=== PATIENT | female | born 1970 | race Caucasian/White ===

== ENCOUNTER 2017-11-26 09:11 | Emergency (ER) | payer BC ==
--- NOTE | 2017-11-26 09:33 | UC ---
Throat Pain/Nasal Zane HPI - HPI Summary HPI Summary: Patient has had increased sinus pressure, change in position is making her lightheaded. feels like the right eye is so swollen and puffy. - History of Current Complaint Stated Complaint: SINUSES Time Seen by Provider: 11/26/17 09:24 Hx Obtained From: Patient Hx Last Menstrual Period: n/a ?: No Onset/Duration: Sudden Onset, Lasting Days - 6 Severity: Moderate Associated Signs & Symptoms: Positive: Sinus Discomfort, Nasal Discharge, Fever - Allergies/Home Medications Allergies/Adverse Reactions: Allergies Allergy/AdvReac Type Severity Reaction Status Date / Time MS NSAIDs [NSAIDs] Allergy Hives Verified 04/09/16 09:12 MS Sulfamethoxazole Allergy Hives Verified 11/19/13 18:17 w/Trimethoprim [From Bactrim] PMH/Surg Hx/FS Hx/Imm Hx Previously Healthy: Yes - Surgical History Surgical History: Yes Surgery Procedure, Year, and Place: Hysterectomy, 2012, [facility] - Family History Known Family History: Positive: None - declined any significant family history Negative: Cardiac Disease, Hypertension - Social History Alcohol Use: Occasionally Substance Use Type: None Smoking Status (MU): Never Smoked Tobacco Have You Smoked in the Last Year: No Review of Systems Constitutional: Fever, Chills, Fatigue Skin: Negative Eyes: Negative ENT: Sore Throat, Ear Ache, Nasal Discharge, Sinus Congestion, Sinus Pain/ Tenderness Respiratory: Cough Cardiovascular: Negative Gastrointestinal: Negative Genitourinary: Negative Motor: Negative Neurovascular: Negative Musculoskeletal: Negative Neurological: Headache Is Patient Immunocompromised?: No All Other Systems Reviewed And Are Negative: Yes Physical Exam Triage Information Reviewed: Yes Appearance: Well-Nourished, Ill-Appearing, Pain Distress Vital Signs Reviewed: Yes Eye Exam: Normal ENT: Positive: Pharyngeal erythema, Nasal congestion, Nasal drainage, TM bulging , TM red, Sinus tenderness Dental Exam: Normal Neck exam: Normal Neck: Positive: Supple, Nontender, No Lymphadenopathy Respiratory Exam: Normal Respiratory: Positive: Chest non-tender, Lungs clear, Normal breath sounds Cardiovascular Exam: Normal Cardiovascular: Positive: RRR, No Murmur, Pulses Normal Abdominal Exam: Normal Abdomen Description: Positive: Nontender, No Organomegaly, Soft Bowel Sounds: Positive: Present Musculoskeletal Exam: Normal Musculoskeletal: Positive: Strength Intact, ROM Intact, No Edema Neurological Exam: Normal Neurological: Positive: Alert, Muscle Tone Normal Psychological Exam: Normal Skin Exam: Normal Throat Pain/Nasal Course/Dx - Course Course Of Treatment: hx obtained, exam performed ,meds reviewed, treated for sinusitis - Differential Dx/Diagnosis Differential Diagnosis/HQI/PQRI: Influenza, Laryngitis, Otitis Media, Pharyngitis, Sinusitis Provider Diagnoses: sinusitis Discharge - Discharge Plan Condition: Stable Disposition: HOME Prescriptions: Azithromyxin GREG (NF) [Z-Greg (Zithromax) 250 mg tabs #6] 2 tab PO .TODAY, THEN 1 DAILY #6 tab predniSONE TAB* [Deltasone TAB*] 40 mg PO DAILY #14 tab Patient Education Materials: Sinusitis (ED) Referrals: Wendi Astorga MD [Primary Care Provider] - Additional Instructions: 1. take the medication as prescribed 2. Increase fluid intake 3. Neti pot is also helpful to rinse the sinuses. 4. Get plenty of rest. 5. FOllow up as needed.
[2017-11-26 09:43] VITALS: BP 127/76
== END 2017-11-26 09:46 | disposition home or self-care (01) ==
LOC: UCCORT 09:11
DX: J32.9 Chronic sinusitis, unspecified (principal); Z88.1 Allergy status to other antibiotic agents; Z88.8 Allergy status to other drugs, medicaments and biological substances
CPT/HCPCS: 99212; G0463

== ENCOUNTER 2019-09-07 09:35 | Emergency (ER) | payer BC ==
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
[2019-09-07 10:06] VITALS: BP 121/77
--- NOTE | 2019-09-07 10:33 | UC ---
Throat Pain/Nasal Zane HPI - HPI Summary HPI Summary: Per developer relations manager: "Sinus congestion, ear pain, headache for last 5 days. " -denies fever, has used "everything" (without offering specifics) and nothing has been effective for more than dose range time. she does get temporary relief from tylenol cold/sinus type products and has to re-dose when they huizar off. no cough. all in her head. has pressure over cheeks and forhead. has not tried saline lavage or nasal sprays. + ear pressure. -works in a school -denies asthma - History of Current Complaint Chief Complaint: UCRespiratory Stated Complaint: SINUS COMPLAINT, B/L EAR COMPLAINT Time Seen by Provider: 09/07/19 10:06 Hx Last Menstrual Period: n/a Pain Intensity: 4 - Allergies/Home Medications Allergies/Adverse Reactions: Allergies Allergy/AdvReac Type Severity Reaction Status Date / Time NSAIDS (Non-Steroidal Allergy Hives Verified 07/18/18 13:40 Anti-Inflamma bactrim Allergy Hives Uncoded 07/18/18 13:40 PMH/Surg Hx/FS Hx/Imm Hx Previously Healthy: Yes - Surgical History Surgical History: Yes Surgery Procedure, Year, and Place: Hysterectomy, 2012, [facility] - Family History Known Family History: Positive: None - declined any significant family history Negative: Cardiac Disease, Hypertension, Respiratory Disease - no asthma - Social History Alcohol Use: Weekly Alcohol Amount: 3 Substance Use Type: None Smoking Status (MU): Never Smoked Tobacco Have You Smoked in the Last Year: No Review of Systems All Other Systems Reviewed And Are Negative: Yes Constitutional: Positive: Fatigue. Negative: Fever, Chills Skin: Negative: Negative, Rash Eyes: Positive: Negative. Negative: Drainage, Eye Redness ENT: Positive: Ear Ache, Nasal Discharge, Sinus Congestion, Sinus Pain/ Tenderness. Negative: Sore Throat Respiratory: Negative: Shortness Of Breath, Cough Cardiovascular: Positive: Negative. Negative: Palpitations, Chest Pain Gastrointestinal: Positive: Negative. Negative: Abdominal Pain, Vomiting, Diarrhea, Nausea Genitourinary: Positive: Negative. Negative: Dysuria Motor: Positive: Negative Neurovascular: Positive: Negative Musculoskeletal: Positive: Negative Neurological: Positive: Negative Psychological: Positive: Negative Is Patient Immunocompromised?: No Physical Exam Triage Information Reviewed: Yes Appearance: Well-Appearing, No Pain Distress, Well-Nourished Vital Signs: Initial Vital Signs Temp 98.7 F 09/07/19 10:02 Pulse 65 09/07/19 10:02 Resp 18 09/07/19 10:02 BP 121/77 09/07/19 10:02 Pulse Ox 100 09/07/19 10:02 Vital Signs Reviewed: Yes Eye Exam: Normal Eyes: Positive: Conjunctiva Clear. Negative: Discharge ENT: Positive: Pharyngeal erythema - mild w + PND, Nasal congestion, Nasal drainage, TMs normal, Uvula midline. Negative: TM bulging, TM dull, TM red, Tonsillar swelling, Tonsillar exudate, Hoarse voice, Sinus tenderness - mild b/ l frontal and maxillary Dental Exam: Normal Neck exam: Normal Neck: Positive: Supple, Nontender, No Lymphadenopathy Respiratory Exam: Normal Respiratory: Positive: Lungs clear, Normal breath sounds, No respiratory distress, No accessory muscle use. Negative: Crackles, Rhonchi, Stridor, Wheezing Cardiovascular Exam: Normal Cardiovascular: Positive: RRR Abdominal Exam: Normal Musculoskeletal Exam: Normal Neurological Exam: Normal Psychological Exam: Normal Skin Exam: Normal Throat Pain/Nasal Course/Dx - Course Course Of Treatment: 5 days of sinus congestion/pressure w/o fever. explained in detail standard treatment guidelines for bacterial sinus infections and considered to be viral at 5-6 days of sx. afebrile. disc symptomatic relief until virus runs its course. cont w/ APAP products and standard recommendations of saline lavage & steroid nasal spray. - Differential Dx/Diagnosis Differential Diagnosis/HQI/PQRI: Pharyngitis, Sinusitis, Tonsillitis, URI Provider Diagnosis: Upper respiratory infection Discharge ED - Sign-Out/Discharge Documenting (check all that apply): Patient Departure All imaging exams completed and their final reports reviewed: No Studies - Discharge Plan Condition: Stable Disposition: HOME Patient Education Materials: Upper Respiratory Infection (ED) Referrals: Wendi Astorga MD [Primary Care Provider] - 6 Days Additional Instructions: There is no evidence of any bacterial infection at this time. Sinus infections are considered to be viral in nature until symptoms have been present for 14 days. In the meantime the recommendation is saline lavage w/ distilled water in something such as a netti pot daily followed by OTC flonase steroid nasal spray. You can continue to use the tylenol products knowing that they give temporary symptom relief until the virus takes its course. Antibiotics are not indicated for prevention of the start of a bacterial infection. Face masks are often used to help prevent the spread of viral respiratory infections. You should be seen sooner if your symptoms change or worsen. - Billing Disposition and Condition Condition: STABLE Disposition: Home
== END 2019-09-07 10:50 | disposition home or self-care (01) ==
LOC: UCCORT 09:35
DX: J06.9 Acute upper respiratory infection, unspecified (principal); Z88.2 Allergy status to sulfonamides; Z88.6 Allergy status to analgesic agent
CPT/HCPCS: 99211; G0463